=== PATIENT | male | born 1945 | race Caucasian/White ===

== ENCOUNTER 2018-11-05 08:35 | Emergency (ER) | payer OTHER, MEDICAID ==
[~2018-11-05] VITALS: Ht 170.2 cm; Wt 103.9 kg
[2018-11-05 08:38] VITALS: BP 176/78; PULSE 96; RESP 18; Ht 170.2 cm; Wt 103.9 kg
[2018-11-05] MEDS ORDERED: KETOROLAC 30 MG INJ IM STA (09:27)
[2018-11-05] MEDS ORDERED: HYDROCODONE/APAP (5/325) TAB PO ONE (09:30)
--- NOTE | 2018-11-05 09:32 | ERD ---
ER Documentation Chief Complaint Chief Complaint BACK PAIN SINCE TUESDAY HPI Patient is a 73-year-old male with past medical history of hypertension, hyperlipidemia, diabetes mellitus type 2 presenting to the clinic with low back pain since Tuesday. Patient denies any trauma or injury, stating that pain came about suddenly. Patient denies picking up any heavy object but reports of being stiff from time to time. Patient rates his pain 8 out of 10 and admits to difficulty walking and getting out of bed. Pain is worse walking downhill and uphill. Patient states that it takes some time climbing up stairs. Denies any OTC medication. Patient reports pain radiates from lower back to right mid gl uteal region to right hamstrings to right gastrocnemius. Patient reports of occasional numbness of his right lower digits. 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 Patient denies all urinary symptoms pain that he has no issues using the bathroom. Patient denies dizziness. ROS All systems reviewed and are negative except as per history of present illness. Medications Home Meds Active Scripts Meloxicam* (Meloxicam*) 7.5 Mg Tablet, 7.5 MG PO DAILY, #30 TAB Prov:REGGIE LATIF PA-C 11/05/18 Hydrocodone/Acetaminophen (Helm 5-325 Tablet) 1 Each Tablet, 1 TAB PO Q6H PRN for PAIN, #7 TAB Prov:REGGIE LATIF PA-C 11/05/18 Allergies Allergies: Coded Allergies: No Known Allergy (Unverified , 11/05/18) PMhx/Soc Hypertension, hyperlipidemia, diabetes mellitus type 2. Bilateral cataract surgery in 2016. History of Surgery: Yes Anesthesia Reaction: No Hx Neurological Disorder: No Hx Respiratory Disorders: No Hx Cardiac Disorders: No Hx Alcohol Use: No Hx Substance Use: No Hx Tobacco Use: No Smoking Status: Never smoker FmHx Patient denies family medical history Family History: No diabetes, No coronary disease, No other Physical Exam Vitals Vital Signs Date Temp Pulse Resp B/P (MAP) Pulse Ox O2 O2 Flow FiO2 Time Delivery Rate 11/05/18 98.1 96 18 176/78 99 08:38 (110) Physical Exam Const: No acute distress Head: Atraumatic Eyes: Normal Conjunctiva ENT: Normal External Ears, Nose and Mouth. Neck: Full range of motion. No meningismus. Abd: Soft, non tender, non distended. Normal bowel sounds. No abdominal mass palpated. Skin: No petechiae or rashes Back: No midline or flank tenderness. Lower back tenderness to right mid gluteal region. Sensation intact. Ext: No cyanosis, or edema. Neuro-Vascular exam intact. Neur: Awake and alert Psych: Normal Mood and Affect Results 24 hrs Current Medications Medications Dose Sig/Erich Start Time Status Last (Trade) Ordered Route PRN Stop Time Admin Dose Reason Admin 1 tab ONCE ONCE 11/05/18 DC Acetaminophen PO 09:30 / 11/05/18 09:34 Hydrocodone Bitart (Helm (5/325)) Ketorolac 30 mg ONCE STAT 11/05/18 DC Tromethamine IM 09:27 (Toradol) 11/05/18 09:34 Ketorolac 60 mg ONCE STAT 11/05/18 DC 11/05/18 Tromethamine IM 09:33 09:38 (Toradol) 11/05/18 09:34 Procedures/MDM Patient was seen and evaluated for severe low back pain with a dermatomal distribution to right lower extremity. Differential diagnoses include sciatica versus spinal stenosis. Abdominal aortic aneurysm is less likely as there is no mass palpated on abdominal exam. Patient has no urinary/renal disease as p atient has an unremarkable abdominal exam. Patient had no flank tenderness or CVAT, therefore pyelonephritis versus nephrolithiasis least likely. Patient reports significant improvement of pain with Toradol and Helm. Patient is stable and will be discharged with meloxicam and Helm. Patient was given orthopedic referral for his spinal stenosis and pulmonary referral for incide ntal pulmonary nodule found on CT. Departure Diagnosis: Primary Impression: Spinal stenosis Spinal region: lumbar Neurogenic claudication status: without neurogenic claudication Qualified Codes: M48.061 - Spinal stenosis, lumbar region without neurogenic claudication Additional Impression: Pulmonary nodule Condition: Stable Patient Instructions: Back Pain W/ Sciatica Referrals: [facility] Additional Instructions: Paciente aconseja volver a Departamento de urgencias inmediatamente para sntomas nuevos o que empeoran . Paciente aconseja posteriores con el PCP en 2-3 b[place] . Paciente verbaliza la comprehensin y est de acuerdo con el tratamiento y el curso de accin. Si el paciente no tiene ninguna de atencin primaria pueden seguir con [facility] [id number] [place] [address] o [facility] + [address] [phone] Comments Patient evaluated with PA, agree with assessment and plan There is no red flags patient was neurovascularly intact, no history of cancer, no recent infection, no recent back procedure. There is no loss of bowel bladder function Lumbar CT showed no fractures. There is some degenerative disc disease with stenosis at the L3, L4,L5 REGGIE Trimble PA-C November 05, 2018 09:32 MING LOCKE DO November 06, 2018 12:00
[2018-11-05] MEDS ORDERED: KETOROLAC 60 MG INJ IM STA (09:33)
[2018-11-05] MEDS ORDERED: MELO7.5T38 PO (10:32)
[2018-11-05] MEDS ORDERED: HYDR-4011 PO (10:32)
== END 2018-11-05 10:59 | disposition home or self-care (01) ==
LOC: FTE 08:35
DX: M48.061 Spinal stenosis, lumbar region without neurogenic claudication (principal); R91.1 Solitary pulmonary nodule; E11.9 Type 2 diabetes mellitus without complications; I10 Essential (primary) hypertension
CPT/HCPCS: 72131; 96372; 99285; J1885